=== PATIENT | female | born 1980 | race Caucasian/White ===

== ENCOUNTER 2020-04-29 04:30 | Day surgery (SDC) | payer OTHER ==
[2020-04-26 14:50] VITALS: BMI 33.5
--- NOTE | 2020-04-29 07:11 | HP ---
History & Physical Update - History History: No Change - Physical Physical: No Change - Assessment Assessment: No Change - Plan Plan: No Change (No change in HP)
[2020-04-29] MEDS ORDERED: IBUPROFEN 400 MG TABLET (FP) PO PRN (07:12)
[2020-04-29] MEDS ORDERED: ACETAMINOPHEN 325 MG TABLET (FP) PO PRN (07:12)
[2020-04-29] MEDS ORDERED: PROPOFOL 20 ML ONE ×2 (09:21)
[2020-04-29] MEDS ORDERED: MIDAZOLAM HCL 2 MG/2 ML SINGLE DOSE VIAL ONE (09:21)
[2020-04-29] MEDS ORDERED: FERRIC SUBSULFATE 500 ML BOTTLE TP ONE (10:00)
[2020-04-29] MEDS ORDERED: ONDANSETRON 4 MG/2 ML VIAL IVPUSH PRN (10:18)
[2020-04-29] MEDS ORDERED: oxyCODONE HCL 5 MG TABLET PO PRN (10:18)
[2020-04-29] MEDS ORDERED: LACTATED RINGERS SOLUTION 1,000 ML IV SCH (10:30)
--- NOTE | 2020-04-29 11:23 | OP ---
Operative Note - Note: Operative Date: 04/29/20 Pre-Operative Diagnosis: HGSIL. HPV Operation: LEEP Cone Findings: small LEEP done Post-Operative Diagnosis: Same as Pre-op Surgeon: Martha Biswas Anesthesia: General Estimated Blood Loss (mls): 3 Operative Report Dictated: Yes
[2020-04-29 15:05] VITALS: BP 127/83; PULSE 72; TEMP 97.7
--- NOTE | 2020-04-29 16:21 | OP ---
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 OPERATION: Large loop electrosurgical excision procedure cone. 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 SURGEON: Martha Biswas MD ANESTHESIA: General. PROCEDURE: Patient was taken to the operating room, placed in the dorsal lithotomy position, prepped and draped in usual sterile fashion. Timeout was performed in accordance with hospital regulation. Speculum was placed in the vagina and Lugol's was then placed on the cervix. A large LEEP cone was done with the small cautery loop followed by coagulation with the ball. Ectocervix was removed followed by endocervix and submitted to Pathology. Hemostasis was achieved. Monsel's was placed. All instruments were then removed. Patient tolerated procedure well. Estimated blood loss was 3 mL. MARTHA BISWAS M.D. [id number]
--- NOTE | 2020-05-02 16:22 | PATH ---
Surgical Pathology Report Patient Name: KALEN MILLAN [facility]. Rec. #: [id number] /Age/Gender: 1980 (Age: 39) / F Account: [id number] Location: [facility] SURGICAL Taken: 04/29/2020 Received: 04/29/2020 Reported: 05/02/2020 Physicians: Martha Biswas M.D. Specimen(s) Received A: ECTOCERVIX B: ENDOCERVIX Clinical History High grade dysplasia Final Diagnosis A. ECTOCERVIX, LEEP CONE BIOPSY: CERVICAL TISSUE WITH MERA 2 (CERVICAL INTRAEPITHELIAL NEOPLASIA, GRADE 2). MERA 2 PRESENT AT THE CAUTERIZED ENDOCERVICAL MARGIN. SEPARATE MINUTE DETACHED SQUAMOUS EPITHELIUM WITH MERA 2 IS ALSO IDENTIFIED. Comment: Immunohistochemical stains (block A4) show strong block positivity of p16 and an increase in Ki-67 expression in the upper two-third layer the lesion, support the diagnosis of MERA 2. Immunohistochemistry stains p16 and Ki-67 performed at [place], [place] ([id number]) interpreted at [facility]. Positive and negative controls (internal if applicable) show appropriate results. B. ENDOCERVIX, LEEP CONE BIOPSY: CERVICAL SQUAMOUS MUCOSA WITH MERA 1; MARGIN IS NEGATIVE FOR DYSPLASIA. NO HIGH GRADE DYSPLASIA IDENTIFIED. NO ENDOCERVICAL TISSUE IDENTIFIED. SUGGESTED CLINICAL CORRELATION. Intradepartmental case reviewed with concordance on diagnosis. This case was discussed with Dr. Biswas on 05/02/2020. Electronically Signed Nas Umana M.D. Gross Description A. Received in formalin labeled "ectocervix," is a 1 cm in diameter annular portion of soft tissue with a central os, consistent with a cervical LEEP cone biopsy. The specimen is unoriented. The specimen is partially surfaced by a ly-pink, shiny glistening mucosa without visible lesions. The specimen is inked blue, serially sectioned and entirely and sequentially submitted in 4 cassettes. B. Received in formalin labeled "endocervix," is a 1.6 x 0.9 x 0.6 cm irregular, unoriented portion of soft tissue which is partially surfaced by a ly-pink, slight shiny and glistening mucosa. No discrete lesions identified. The specimen is inked blue, serially sectioned and entirely submitted in 2 cassettes. 04/29/2020 saudi04/29/2020
== END 2020-04-29 15:05 | disposition home or self-care (01) ==
LOC: JASU-SURG 04:30
PROVIDERS: ATTEND Obstetrics & Gynecology
PROC: 0UBC7ZX Excision of Cervix, Via Natural or Artificial Opening, Diagnostic (ICD-10-PCS; principal; 2020-04-29 09:00)
DX: N87.1 Moderate cervical dysplasia (principal); R87.820 Cervical low risk human papillomavirus (HPV) DNA test positive
CPT/HCPCS: 86850; 86900; 86901; 88307-TC; 94760

== ENCOUNTER 2024-04-19 11:22 | Emergency (ER) | payer OTHER ==
[2024-04-19 11:36] VITALS: BP 141/85; PULSE 76; RESP 18; TEMP 98.3; BMI 24.9
[2024-04-19] MEDS: SODIUM CHLORIDE 1,000 ML IV STA (12:54)
[2024-04-19] MEDS ORDERED: ACETAMINOPHEN INJECTION 100 ML ONE (12:55)
[2024-04-19] MEDS: ACETAMINOPHEN 1000 MG/100 ML BAG IVPB ONE (13:00)
[2024-04-19 13:08] LABS: BASO % 0.3 % (0-2.0); EOS % 0.6 % (0-4.5); EPI CELLS >36 /uL (0-25.1); HEMATOCRIT 36.9 % (32.4-45.2); HEMOGLOBIN 11.9 GM/dL (10.7-15.3); HYALINE CASTS 4 /uL (0-3.1); LYMPH % 25.6 % (8-40); MCH 23.8 pg (25.7-33.7); MCHC 32.2 g/dl (32.0-36.0); MEAN CELL VOLUME 74.1 fl (80-96); MEAN PLT VOLUME 9.1 fl (7.5-11.1); NEUT % 66.5 % (42.8-82.8); PLATELET COUNT 274 10^3/uL (134-434); RBC 4.98 M/mm3 (3.60-5.2); RDW 15.9 % (11.6-15.6); URINE APPEARANCE CLOUDY; URINE BACTERIA 552 /uL (0-1359); URINE BILIRUBIN NEGATIVE (NEGATIVE); URINE COLOR YELLOW; URINE GLUCOSE (UA) NEGATIVE (NEGATIVE); URINE KETONE TRACE (NEGATIVE); URINE LEUK ESTERASE NEGATIVE (NEGATIVE); URINE NITRITE NEGATIVE (NEGATIVE); URINE PROTEIN TRACE (NEGATIVE); URINE RBC 577 /uL (0-23.9); URINE WBC 29 /uL (0-25.8); WHITE BLOOD COUNT 6.8 K/mm3 (4.0-10.0)
[2024-04-19 13:13] LABS: INR 1.3 (0.83-1.09); PROTHROMBIN TIME (PATIENT) 14.8 SEC (9.7-13.0)
[2024-04-19 13:16] LABS: ACTIVATED PTT 33.2 SECONDS (25.2-36.5)
[2024-04-19 13:17] LABS: HCG,QUALITATIVE URINE Negative
[2024-04-19 13:29] LABS: ALBUMIN 3.6 g/dl (3.4-5.0); BLOOD UREA NITROGEN 15.1 mg/dL (7-18); CALCIUM 9.1 mg/dL (8.5-10.1)
[2024-04-19 13:32] LABS: CREATININE 0.9 mg/dL (0.55-1.3)
[2024-04-19 13:34] LABS: BILIRUBIN,TOTAL 0.5 mg/dL (0.2-1)
[2024-04-19 17:28] LABS: HIV INTERPRETATION NEGATIVE (NEGATIVE)
== END 2024-04-19 16:54 | disposition home or self-care (01) ==
LOC: JER 11:22
PROC: 3E033NZ Introduction of Analgesics, Hypnotics, Sedatives into Peripheral Vein, Percutaneous Approach (ICD-10-PCS; principal; 2024-04-19)
PROC: 3E0337Z Introduction of Electrolytic and Water Balance Substance into Peripheral Vein, Percutaneous Approach (ICD-10-PCS; 2024-04-19)
DX: D25.9 Leiomyoma of uterus, unspecified (principal); R10.31 Right lower quadrant pain
CPT/HCPCS: 36415; 74177-TC; 76830-TC; 80053; 81003; 84703; 85025; 85610; 85730; 86803; 87086; 87389; 99285-25; J0131; Q9967